=== PATIENT | female | born 1980 | race Hispanic/Latino ===

== ENCOUNTER 2018-02-25 07:20 | Emergency (ER) | payer OTHER ==
[2018-02-25] MEDS ORDERED: Ondansetron PF 4 MG/2 ML Vial ONE (07:55)
[2018-02-25] MEDS ORDERED: Ketorolac Tromethamine 30 MG/ML VIAL ONE (07:55)
[2018-02-25] MEDS ORDERED: Sodium Chloride 0.9% 1,000 ML ONE ×2 (08:12→10:00)
[2018-02-25 08:18] LABS: ALT (SGPT) 10 U/L (8-55); AST (SGOT) 11 U/L (5-34); Albumin 3.9 g/dL (3.5-5.0); Alkaline Phosphatase 84 U/L (40-150); Anion Gap 14 mmol/L (10-20); BUN (Urea Nitrogen) 6 mg/dL (7.0-18.7); Calc. Creatinine Clearance 0 mL/min (70-130); Calcium 9.1 mg/dL (7.8-10.44); Carbon Dioxide 21 mmol/L (22-29); Chloride 104 mmol/L (98-107); Estimated GFR-MDRD Greater than 90; Globulin 3.6 g/dL (2.4-3.5); Glucose 137 mg/dL (70-105); Lipase 4 U/L (8-78); Potassium 3.4 mmol/L (3.5-5.1); Protein, Total 7.5 g/dL (6.0-8.3); Sodium 136 mmol/L (136-145)
[2018-02-25 08:22] LABS: Hemoglobin 9.6 g/dL (12.0-16.0); Mean Corpuscular HGB CONC 28.5 g/dL (32.0-36.0); Mean Corpuscular Hemoglobin 18.4 pg (27.0-31.0); Mean Corpuscular Volume 64.7 fL (78.0-98.0); Mean Platelet Volume 7.7 fL (7.4-10.4); Platelet Count 298 thou/uL (130-400); RBC Distribution Width 17.2 % (11.5-14.5); Red Blood Cell (RBC) Count 5.18 mill/uL (4.20-5.40); White Blood Cell (WBC) Count 17.1 thou/uL (4.8-10.8)
[2018-02-25 08:23] LABS: Anisocytosis SLIGHT = 6-15 cells (100X) (0-5/hpf); Band 3 % (5-11); Hypochromia SLIGHT = 6-15 cells (100X) (0-5/hpf); Lymphocytes 5 % (21-51); MDiff Complete? YES; Microcytosis SLIGHT = 6-15 cells (100X) (0-5/hpf); Monocytes 3 % (0-10); Neutrophil 89 % (42-75); PLT Morphology Comment Appears Adequate
[2018-02-25 08:38] LABS: Bilirubin Small (Negative); Blood, Urine Negative (Negative); Clarity Clear (Clear); Glucose, Urine (Dipstick) Negative (Negative); Leukocyte Negative (Negative); Nitrite Negative (Negative); Protein, Urine (Dipstick) 30 mg/dL (Neg-Trace); pH, Urine 6.5 (5.0-9.0)
[2018-02-25 08:42] LABS: Pregnancy Test - Urine (BHCG) Negative (Negative); Pregu Control Background? CLEAR/WHITE (CLR/WHITE); Pregu Control Bar Appear? YES (CONTROL BAR)
[2018-02-25 08:49] LABS: Bacteria/HPF Rare-Few HPF (None Seen); Other Microscopic Description NO; RBC/HPF None Seen HPF (0-3); Squamous Epithelial 0-3 HPF (0-3); WBC/HPF 0-3 HPF (0-3)
--- NOTE | 2018-02-25 08:53 | RAD ---
ABDOMINAL SURVEY WITH UPRIGHT CHEST AND 2 VIEW ABDOMEN: Date: 02/25/18 INDICATION: Nausea and vomiting. Abdominal pain. FINDINGS: Lung grigsby are clear. Heart and mediastinum unremarkable. Supine and upright views of abdomen show an unremarkable bowel gas pattern. Scattered stool and gas s een in the colon. No significant small bowel gas. No abnormal calcification or soft tissue mass ident ified. IMPRESSION: No acute findings. POS: [facility]
[2018-02-25] MEDS ORDERED: Iopamidol 370 76% 100 ML VIAL ONE (09:00)
[2018-02-25] MEDS ORDERED: Piperacillin/Tazobactam 3.375 GM VIAL ONE ×2 (09:59→10:02)
[2018-02-25] MEDS ORDERED: Sodium Chloride 0.9% 100 ML ONE (10:02)
--- NOTE | 2018-02-25 10:18 | CT ---
CT ABDOMEN AND PELVIS WITHOUT CONTRAST: Date: 02/25/18 COMPARISON: None. HISTORY: Diffuse abdominal pain since 3:00 yesterday. Two episodes of vomiting. TECHNIQUE: Multiple contiguous axial images were obtained of the CT abdomen and pelvis with contrast. Coronal re formats were performed. FINDINGS: Liver, gallbladder, right kidney, adrenal glands, spleen, and pancreas are unremarkable. There is a 1 .7 cm cyst in the left kidney. There is stranding change surrounding an enlarged appendix consistent with acute appendicitis. No lorena e air or free fluid seen in the abdomen or pelvis. The large and small bowel are normal in caliber. T he reproductive organs are unremarkable. A tampon is seen within the vagina. No abdominal or pelvic lymphadenopathy seen. The osseous structur es, visualized inferior thorax, and abdominal wall soft tissues are unremarkable. IMPRESSION: 1. Acute appendicitis. 2. Left renal cyst. Dr. Moore notified of the findings at 0936 hours on 02/25/18. CODE CR. POS: [facility]
== END 2018-02-25 11:02 | disposition short-term general hospital (02) ==
LOC: NAV ERS 07:20
DX: K35.80 Unspecified acute appendicitis (principal); F17.210 Nicotine dependence, cigarettes, uncomplicated
CPT/HCPCS: 74022; 74177; 80053; 81003; 81015; 81025; 83690; 85025; J1885; J2405; J2543; J7050